=== PATIENT | male | born 1970 | race Asian ===

== ENCOUNTER → 2017-10-17 | Outpatient (CLI) | payer OTHER ==
--- NOTE | 2017-10-17 12:53 | Diagnostic Imaging Report ---
PROCEDURE: Frontal and lateral views of the chest. COMPARISON: None. INDICATIONS: COUGH FINDINGS: Lines/tubes: None. Lungs: Hyperexpanded lungs. There is no evidence of pneumonia or pulmonary edema. Pleura: There is no pleural effusion or pneumothorax. Heart and mediastinum: Normal size heart. The aorta is tortuous. Bones: No acute bony abnormality. Multilevel spondylosis of the thoracic spine. IMPRESSION: COPD. No evidence of infection or pulmonary edema. Dictated by: Joe Cardoza M.D. on 10/17/2017 at 12:54 Electronically approved by: Joe Cardoza M.D. on 10/17/2017 at 12:54
== END ==
LOC: RAD 12:15
PROVIDERS: ATTEND Internal Medicine
DX: R05 Cough (principal)
CPT/HCPCS: 71046

== ENCOUNTER → 2018-02-20 | Outpatient (CLI) | payer OTHER ==
--- NOTE | 2018-02-20 14:21 | Diagnostic Imaging Report ---
PROCEDURE: CT CHEST WITHOUT CONTRAST CT scan of the chest WITHOUT intravenous contrast, using standard protocol. TECHNIQUE: The chest was scanned utilizing a multidetector helical scanner from the apex to the level of the adrenal glands. No IV contrast was administered because of referring physician request. Coronal and sagittal multiplanar reformations were obtained. COMPARISON: Chest radiograph 10/17/2017 INDICATIONS: COPD FINDINGS: Lines/tubes: None. Lungs and Airways: Mild upper lobe predominant paraseptal and centrilobular emphysematous changes. Right greater than left apical pleural-parenchymal scar. 3 mm right upper lobe nodule (series 3 image 29). 4 mm right upper lobe nodule (series 3 image 57). 4 mm right upper lobe nodule seen on series 3 image 61. Respiratory motion artifact slightly limits evaluation of the lower lobes. Trachea, mainstem bronchi, and central lobar and segmental bronchi are patent. Pleura: The pleural spaces are clear. Heart and mediastinum: The visualized portions of the thyroid gland show bilateral hypoattenuating nodules measuring up to 9 mm on the left. No axillary, hilar, or mediastinal lymphadenopathy. No pericardial effusion. No ectasia or aneurysmal dilatation of the thoracic aorta. Pulmonary outflow tract is of normal caliber. Soft tissues: No focal soft tissue abnormalities. Abdomen: Visualized portions of the liver, spleen, pancreas, adrenals, and upper poles of the kidneys are unremarkable Bones: No osseous destructive lesions. Degenerative disc changes of the thoracic spine. IMPRESSION: Mild upper lobe predominant emphysema. Scattered pulmonary nodules measuring up to 5 mm. Per Fleischner society 2017 guidelines, a followup CT scan of the chest without contrast in 12 months may be obtained if the patient is at high risk for malignancy. Bilateral thyroid nodules may be further evaluated by ultrasound. Dictated by: Renard Curtis M.D. on 02/20/2018 at 12:01 Electronically approved by: Renard Curtis M.D. on 02/20/2018 at 12:01
== END ==
LOC: CT 10:10
PROVIDERS: ATTEND Internal Medicine
DX: J44.9 Chronic obstructive pulmonary disease, unspecified (principal)
CPT/HCPCS: 71250

== ENCOUNTER → 2018-04-11 | Day surgery (SDC) | payer OTHER ==
[~2018-04-11] MED LIST: GABAPENTIN300 MG PO; LIDOCAINE HCL 2% LOCAL INJ 5 ML SDV VIAL INJ ONE; MELOXICAM7.5 MG PO; PROPOFOL IV EMULSION 10 MG/ML 20 ML VIAL ONE; SYMBICORT 16010.2 GM PO; [UNRECOGNIZED DRUG - CODE] PO
[2018-04-11 12:45] VITALS: BP 133/92
--- OUTSIDE RECORDS SUMMARY | 2018-04-17 12:38 | XMS REPORT ---
Author Author [facility] Address Unknown Phone Unavailable Care Team Providers Care Director Emergency Name Role Phone JAYLEN BURT Unavailable Unavailable Problems This patient has no known problems. Allergies, Adverse Reactions, Alerts This patient has no known allergies or adverse reactions. Medications This patient has no known medications. Results Test Description Test Time Test Comments Text Results Atomic Results Result Comments CT CHEST WO 2018-02-20 12:01:00 [place] [address] Patient Name: JOSE MERCEDES MR #: [id number] : 1970 Age/Sex: 47/M Req #: [id number] [facility] Physician: Ordered by: JAYLEN BURT MD Report #: [id number] Location: CT Room/Bed: Procedure: [id number] CT/CT CHEST WO Exam Date: 02/20/18 Exam Time: 1046 REPORT STATUS: Signed PROCEDURE: CT CHEST WITHOUT CONTRAST CT scan of the chest WITHOUT intravenous contrast, using standard protocol. TECHNIQUE: The chest was scanned utilizing a multidetector helical scanner from the apex to the level of the adrenal glands. No IV contrast was administered because of referring physician request. Coronal and sagittal multiplanar reformations were obtained. COMPARISON: Chest radiograph 10/17/2017 INDICATIONS: COPD FINDINGS: Lines/tubes: None. Lungs and Airways: Mild upper lobe predominant paraseptal and centrilobular emphysematous changes. Right greater than left apical pleural-parenchymal scar. 3 mm right upper lobe nodule (series 3 image 29). 4 mm right upper lobe nodule (series 3 image 57). 4 mm right upper lobe nodule seen on series 3 image 61. Respiratory motion ar tifact slightly limits evaluation of the lower lobes. Trachea, mainstem bronchi, and central lobar and segmental bronchi are patent. Pleura: The pleural spaces are clear. Heart and mediastinum: The visualized portions of the thyroid gland show bilateral hypoattenuating nodules measuring up to 9 mm on the left. No axillary, hilar, or mediastinal lymphadenopathy. No pericardial effusion. No ectasia or aneurysmal dilatation of the thoracic aorta. Pulmonary outflow tract is of normal caliber. Soft tissues: No focal soft tissue abnormalities. Abdomen: Visualized portions of the liver, spleen, pancreas, adrenals, and upper poles of the kidneys are unremarkable Bones: No osseous destructive lesions. Degenerative disc changes of the thoracic spine. IMPRESSION: Mild upper lobe predominant emphysema. Scattered pulmonary nodules measuring up to 5 mm. Per Fleischner society 2017 guidelines, a followup CT scan of the chest without contrast in 12 months may be obtained if the patient is at high risk for malignancy. Bilateral thyroid nodules may be further evaluated by ultrasound. Dictated by: Saroj Ignacio M.D. on 02/20/2018 at 12:01 Electronically approved by: Saroj Ignacio M.D. on 02/20/2018 at 12:01 Dictated By: SAROJ IGNACIO MD 1201 Transcribed By: JACLYN on 02/20/18 1201 COPY TO: JAYLEN BURT MD CHEST 2 VIEWS [place] [address] Patient Name: JOSE MERCEDES MR #: [id number] : 1970 Age/Sex: 47/M Req #: [id number] Adm Physician: Ordered by: JAYLEN BURT MD Report #: [id number] Location: [facility] Room/Bed: Procedure: [id number] DX/CHEST 2 VIEWS Exam Date: 10/17/17 Exam Time: 1230 REPORT STATUS: Signed PROCEDURE: Frontal and lateral views of the chest. COMPARISON: None. INDICATIONS: COUGH FINDINGS: Lines/tubes: None. Lungs: Hyperexpanded lungs. There is no evidence of pneumonia or pulmonary edema. Pleura: There is no pleural effusion or pneumothorax. Heart and mediastinum: Normal size heart. The aorta is tortuous. Bones: No acute bony abnormality. Multilevel spondylosis of the thoracic spine. IMPRESSION: COPD. No evidence of infection or pulmonary edema. Dictated by: Jackie Cardoza M.D. on 10/17/2017 at 12:54 Electronically approved by: Jackie Cardoza M.D. on 10/17/2017 at 12:54 Dictated By: JACKIE CARDOZA MD 1254 Transcribed By: JACLYN on 10/17/17 1254 COPY TO: JAYLEN HAYS MD
== END | disposition home or self-care (01) ==
LOC: OR 10:44
PROVIDERS: ATTEND Internal Medicine Gastroenterology
DX: K26.3 Acute duodenal ulcer without hemorrhage or perforation (principal); K29.70 Gastritis, unspecified, without bleeding; K44.9 Diaphragmatic hernia without obstruction or gangrene; K21.9 Gastro-esophageal reflux disease without esophagitis; R13.19 Other dysphagia; J44.9 Chronic obstructive pulmonary disease, unspecified; B18.1 Chronic viral hepatitis B without delta-agent; Z68.22 Body mass index [BMI] 22.0-22.9, adult; Z87.891 Personal history of nicotine dependence
CPT/HCPCS: 43239; 88305; 88312; 93005; J2001

== ENCOUNTER → 2018-05-08 | Outpatient (CLI) | payer OTHER ==
[~2018-05-08] MED LIST changes: -LIDOCAINE HCL 2% LOCAL INJ 5 ML SDV VIAL INJ ONE; -PROPOFOL IV EMULSION 10 MG/ML 20 ML VIAL ONE
--- NOTE | 2018-05-13 22:26 | Pulmonary Function Test ---
DATE OF STUDY: Patient of Dr. Anderson. Restrictive spirometry: Forced vital capacity 2.44 L, 54% of predicted. FEV1 1.62 L, 50% of predicted. FEV1 FVC ratio 72%. FEF 25 to 75, 36% of predicted. There was no significant improvement following inhalation of bronchodilators. Diffusion capacity is reduced 15.61, 51% of predicted, suggesting loss of alveolar units or ventilation perfusion imbalance. Lung volumes, however, are preserved. Total capacity 5.59 L, 94% of predicted. This combination of findings suggests obstructive pulmonary disease involving small airways. Job#: [id number] CQ
== END ==
LOC: RESP 11:04
PROVIDERS: ATTEND Internal Medicine Pulmonary Disease
DX: R91.8 Other nonspecific abnormal finding of lung field (principal); J45.909 Unspecified asthma, uncomplicated
CPT/HCPCS: 94060; 94727; 94729